=== PATIENT | female | born 1970 | race Two or more races ===

== ENCOUNTER 2018-11-14 11:09 | Emergency (ER) | payer OTHER ==
[~2018-11-14] VITALS: Ht 157.5 cm; Wt 67.6 kg
[2018-11-14 11:22] VITALS: BP 104/65
[2018-11-14 12:28] LABS: Basophils # (auto) 0 uL; Eosinophils # (auto) 0 uL; Monocytes # (auto) 0.3 uL
[2018-11-14 12:31] LABS: Basophils % (auto) 1.2 % (0.0-2.0); Eosinophils % (auto) 0.5 % (0.0-7.0); Hematocrit 21.6 % (36.0-46.0); Lymphocytes # (auto) 0.9 uL; Mean Corpuscular Hemoglobin 16.3 pg (28.0-32.0); Mean Corpuscular Hgb Conc. 28.7 g/dL (32.0-36.0); Mean Corpuscular Volume 56.9 fL (80.0-100.0); Monocytes % (auto) 6.3 % (0.0-12.0); Platelet Count (auto) 276 10^3/uL (140-450); White Blood Cell 4.2 10^3/uL (4.4-10.8)
[2018-11-14 12:40] LABS: Urine Bacteria FEW /hpf (None Seen); Urine Blood Negative /uL (Negative); Urine Specific Gravity 1.003 (1.001-1.035); Urine WBC <1 /hpf (0 - 5)
[2018-11-14 12:43] LABS: Potassium 3.7 mmol/L (3.5-5.1)
[2018-11-14 12:50] LABS: BUN/Creatinine Ratio 13.7; Bilirubin, Total 0.3 mg/dL (0.2-1.0); Calcium 8.6 mg/dL (8.5-10.1); Total Protein 7.5 g/dL (6.4-8.2)
[2018-11-14 12:54] LABS: Hemoglobin 6.2 g/dL (12.2-16.2); Red Cell Distribution Width 23.4 % (11.8-14.3)
[2018-11-14 13:57] LABS: INR 0.99 (0.9-1.15); Partial Thromboplastin Time 25.4 sec (23.64-32.05)
== END 2018-11-14 17:12 | disposition left against medical advice (07) ==
LOC: ER 11:09
DX: R00.2 Palpitations (principal); Z53.21 Procedure and treatment not carried out due to patient leaving prior to being seen by health care provider
CPT/HCPCS: 36415; 80053; 81001; 84443; 84484; 85025; 85610; 85730; 93005

== ENCOUNTER 2018-11-15 10:03 | Emergency (ER) | payer OTHER ==
[~2018-11-15] VITALS: Ht 157.5 cm; Wt 67.6 kg
[2018-11-15 10:18] VITALS: BP 106/49
== END 2018-11-15 13:40 | disposition left against medical advice (07) ==
LOC: EDUNIT# 10:18 → ER 10:18
DX: R79.9 Abnormal finding of blood chemistry, unspecified (principal); Z53.21 Procedure and treatment not carried out due to patient leaving prior to being seen by health care provider